=== PATIENT | male | born 1965 | race Caucasian/White ===

== ENCOUNTER 2025-04-04 00:10 | Inpatient (IN) | payer OTHER, SELFPAY ==
[2025-04-03 18:01] VITALS: BP 134/99
[2025-04-03 18:27] LABS: Hematocrit 48.5 % (39.0-52.0); Hemoglobin 17.6 g/dL (13.0-18.0); Mean Corp Hgb Conc. 36.3 g/dL (33.0-37.0); Mean Corpuscular Hgb 31.5 pg (27.0-31.0); Mean Corpuscular Volume 86.8 fL (80.0-94.0); Mean Platelet Volume 8.8 fL (7.4-10.4); Platelet Count 302 10^3/uL (130-400); Red Blood Cell Count 5.59 10^6/uL (4.70-6.10); Red Cell Dist. Width 12.1 % (11.5-14.5); White Blood Cell Count 26.4 10^3/uL (4.8-10.8)
[2025-04-03 18:29] LABS: ALT (SGPT) 45 U/L (0-50); AST (SGOT) 34 U/L (17-59); Albumin 4.2 g/dl (3.5-5.0); Alkaline Phosphatase 94 U/L (38-126); Blood Urea Nitrogen 15 mg/dl (9-20); Carbon Dioxide 26 mmol/L (22-30); Chloride 98 mmol/L (98-107); Glucose 169 mg/dl (70-99); Sodium 134 mmol/L (135-145); Total Bilirubin 3.9 mg/dl (0.2-1.3); Total Protein 7.1 g/dl (6.3-8.2); eGFR > 60.00
[2025-04-03 18:48] LABS: Lipase 84 U/L (23-300)
[2025-04-03 19:05] LABS: % Basophils 0.4 % (0-2); % Eosinophils 0.7 % (0-6); % Immature Granulocytes 0.8 % (0-0.5); % Lymphocytes 9.5 % (20.5-51.1); % Monocytes 6.8 % (1.7-9.3); % Neutrophils 81.8 % (42.2-75.2); Absolute Basophils 0.1 10^3/uL (0-0.2); Absolute Eosinophils 0.2 10^3/uL (0-0.7); Absolute Immature Granulocytes 0.2 10^3/uL (0-0.05); Absolute Lymphocytes 2.5 10^3/uL (1.2-3.4); Absolute Monocytes 1.8 10^3/uL (0.1-0.6); Absolute Neutrophils 21.6 10^3/uL (1.4-6.5); Nucleated Red Blood Cells % 0 % (-)
--- NOTE | 2025-04-03 19:17 | ED.GENMED ---
History of Present Illness
General
Chief Complaint: Abdominal Symptoms
Source: patient
Exam Limitations: none
Time Seen by Provider: 04/03/25 19:02
History of Present Illness
History of Present Illness:
59-year-old male presents complaining of persistent right upper quadrant abdominal pain since 2 days ago with chills and sweats and a measurable fever. He was here 4 years ago and diagnosed with a gallstone. This pain feels very similar. He was
not nauseous but try to make himself vomit to feel better however this did not help. No cough or shortness of breath. No urinary symptoms. He is healthy otherwise. No other
Phy Exam
Physical Exam
Physical Exam:
General: Well-appearing male no acute respiratory distress
HEENT: Normocephalic atraumatic no obvious icterus
Heart: Tachycardic but regular lungs: Clear no wheeze
Abdomen is soft tender to the right upper quadrant positive Diaomnd sign
Extremities: No cyanosis
Skin is warm no jaundice
Sepsis
Sepsis Screening
Sepsis Assessment: Sepsis
Sepsis Screen
Sepsis Screen: Sepsis
Date: 04/03/25
Time: 23:25
Course
Orders/Labs/Results
Orders:
Orders
04/03/25 18:03
US Abdomen Complete/Upper Urgent
Comment:
Reason For Exam: RUQ abd pain w/ fever x 3 days
04/03/25 18:08
Complete Blood Count/With Diff Urgent
Comprehensive Metabolic Panel Urgent
Lipase Urgent
04/03/25 19:14
0.9% Sodium Chloride 1000 ml [Nss] 1,000 ml IV BOLUS
Acetaminophen [Tylenol] 1,000 mg PO NOW STA
Ketorolac [Toradol] 15 mg IV NOW STA
04/03/25 23:17
Piperacillin/Tazo 3.375 Gram [Zosyn] 3.375 gram in 50 ml IV NOW
Abnormal Lab Results
04/03/25
18:08
WBC 26.4 H 10^3/uL
(4.8-10.8)
MCH 31.5 H pg
(27.0-31.0)
Abs Immat Gran (auto) 0.2 H 10^3/uL
(0-0.05)
Absolute Neuts (auto) 21.6 H 10^3/uL
(1.4-6.5)
Absolute Monos (auto) 1.8 H 10^3/uL
(0.1-0.6)
Immature Gran % 0.8 H %
(0-0.5)
Neutrophils % 81.8 H %
(42.2-75.2)
Lymphocytes % 9.5 L %
(20.5-51.1)
Sodium 134 L mmol/L
(135-145)
Glucose 169 H mg/dl
(70-99)
Total Bilirubin 3.9 H mg/dl
(0.2-1.3)
04/03/25 18:08
04/03/25 18:08
Vital Signs
Initial and Last Documented VS:
Initial Vital Signs
Temp Pulse Resp BP Pulse Ox
101.3 F H 126 20 134/99 96
04/03/25 18:01 04/03/25 18:01 04/03/25 18:01 04/03/25 18:01 04/03/25 18:01
Last Documented Vital Signs
Temp Pulse Resp BP Pulse Ox
99.4 F 91 18 133/85 94
04/03/25 21:01 04/03/25 21:01 04/03/25 21:01 04/03/25 21:01 04/03/25 21:01
MDM/Problems Addressed
Differential Diagnosis Includes:
Fever right upper quadrant pain. Consider cholecystitis versus cholangitis. White blood cell count is elevated at 26,000. Heart rate is high. Concern for possible sepsis. Fluids ordered Tylenol ordered Toradol ordered. Ultrasound pending
*Critical Care Note
Total Time (30-74mins, 75-104mins- exclusive of procedures): Not Applicable
Update Note
Update Note:
Ultrasound shows gallstone with borderline gallbladder wall thickening and questionable pericholecystic fluid. Patient meets sepsis criteria with leukocytosis fever and tachycardia. Fluids ordered Zosyn ordered. Discussed findings general surgery
who recommended medical admit for GI consult and evaluation for possible choledocholithiasis. Hospitalist made aware patient made aware
ED Attending Note
-
Portions of this chart may have been created with voice recognition software.� Occasional wrong word or��sound alike� substitutions may have occurred due to the inherent limitations of voice recognition software.
Discharge Plan
Departure
Patient Disposition: Admit
Date of Disposition: 04/03/25
Time of Disposition: 23:24
Presentation/result/management discussed w/ accepting MD/DO: Hospitalist
Patient with high blood pressure during this ER visit?: No
Discharge Problem:
Acute cholecystitis
Prescriptions:
No Action
dextroamphetamine-amphetamine [Adderall] 10 mg Tablet
10 mg PO DAILY
clonazepam [Klonopin] 1 mg Tablet
1 mg PO DAILY PRN (Reason: anxiety )
ibuprofen [Advil] 200 mg Tablet
400 mg PO Q6H PRN (Reason: mild pain/HINES)
Referrals:
Lakesha Juan CRNP [Family Provider] -
Interventions
Interventions:
*Risk Screen - Suicide Last Done: 04/03/25 18:01
*General Assessment Last Done: 04/03/25 18:01
*Neglect/Abuse Screening Last Done: 04/03/25 18:01
*ED- Fall Risk Assessment Last Done: 04/03/25 23:23
*ED COVID-19 Vaccine History Last Done: 04/03/25 23:23
Discharge Date and Time
Print Language: CYMRO
[2025-04-03 19:29] VITALS: BMI 29.4
[2025-04-03] MEDS: TYLENOL 1000 MG PO (19:31)
[2025-04-03] MEDS: TORADOL 15 MG IV (19:35)
[2025-04-03] MEDS: NSS 1000 IV (19:35)
[2025-04-03 21:01] VITALS: BP 133/85
[2025-04-03] MEDS: ZOSYN 50 IV (23:33)
--- NOTE | 2025-04-03 23:45 | HPS.HSE ---
Family Physician
-
Family Physician: DENITA Shaw
Chief Complaint
-
Abdominal pain
History of Present Illness
This is a 59-year-old with past medical history significant for anxiety and a prior history of biliary colic presents to the emergency department with right upper quadrant abdominal pain for the last 3 days.
Patient stated that approximately 4 years ago he had episode of biliary colic. He had stones in the gallbladder at that time and decided not to undergo surgical procedure. He states he has been asymptomatic from that perspective up until 2 or 3
days ago when he started having abdominal pain and bloating. Denies any nausea or vomiting. He denies any diarrhea. He had chills at home but did not measure his temperature. He denies any changes to the color of his stool or urine. He denies
any diarrhea.
In the emergency department he had a temp of 101.3 on arrival, blood pressure was 193/85 with a pulse of 91 was satting 90% on room air.
White count was 26.4, hemoglobin and platelets were normal. Electrolytes were normal. BUN/creatinine were normal. LFTs were normal except for elevation in total bilirubin to 3.9. Lipase was normal.
Ultrasound of the abdomen showed dependent cholelithiasis, gallbladder sludge, borderline gallbladder wall thickening and trace pericholecystic fluid. There was negative sonographic Diamond sign. There was no dilation of the biliary duct.
Medical History
Past Medical History
Past Medical History: Reports Psychiatric (Anxiety)
Past Surgical History: Reports Other (Hernia repair)
Social History
Tobacco: Former Smoker
Alcohol: Occasional
Drug: None
Personal: Single
Employment: Employed
Family History
Family History: Not pertinent
Allergies / Home Medications
Allergies reflects when Allergies were last updated in [facility].
Home Medications with original date entered in [facility]
Allergy/Medication List:
Allergies
Allergy/AdvReac Type Severity Reaction Status Date / Time
grasses Allergy sneezing,runny Uncoded 04/03/25 23:24
nose
seasonal allergies Allergy sneezing,runny Uncoded 04/03/25 23:24
nose
Home Medications
clonazepam 1 mg tablet (Klonopin) 1 mg PO DAILY PRN anxiety 04/03/25
dextroamphetamine-amphetamine 10 mg tablet (Adderall) 10 mg PO DAILY 04/03/25
ibuprofen 200 mg tablet (Advil) 400 mg PO Q6H PRN mild pain/HINES 04/03/25
Review of Systems
-
History Source: Patient
Constitutional: Reports No Symptoms
EENT: Reports No Symptoms
Respiratory: Reports No Symptoms
Cardiac: Reports No Symptoms
Abdomen/GI: Reports Abdominal Pain
: Reports No Symptoms
Musculoskeletal: Reports No Symptoms
Skin: Reports No Symptoms
Neurological: Reports No Symptoms
Endocrine: Reports No Symptoms
Hematologic/Lymphatic: Reports No Symptoms
Psych: Reports No Symptoms
Physical Exam
Vital Signs
Vital Signs
Temp Pulse Resp BP Pulse Ox
99.4 F 91 18 133/85 94
04/03/25 21:01 04/03/25 21:01 04/03/25 21:01 04/03/25 21:01 04/03/25 21:01
Physical Exam
General: Well Developed, Well Nourished, Comfortable and Conversant
HEENT: NormoCephalic, Anicteric, Moist mucous membranes and Atraumatic
Respiratory: Clear
Cardiac: S1/S2 and Regular Rhythm
Breast: Deferred by me
GI: Soft, Non Distended, Normal Bowel Sounds and Tender
Rectal: Deferred by Provider
Genito-urinary: Deferred by me
Musculoskeletal: No Clubbing, No Cyanosis and No Edema
Skin: Warm
Neuro: AO x 3 and Nonfocal/grossly intact
Hematologic/Lymphatic: No Lymphadenopathy
Psych: Calm
Laboratory Results
-
04/03/25 18:08
04/03/25 18:08
Laboratory Results
Total Bilirubin 3.9 mg/dl (0.2-1.3) H 04/03/25 18:08
AST 34 U/L (17-59) 04/03/25 18:08
ALT 45 U/L (0-50) 04/03/25 18:08
Alkaline Phosphatase 94 U/L (38-126) 04/03/25 18:08
Lipase 84 U/L (23-300) 04/03/25 18:08
Data Reviewed
-
Ultrasound: Report Reviewed by me
Lab Data: Labs Reviewed by me
Old Records: Reviewed
Impression/Plan
-
IMPRESSION:
59-year-old with history of biliary colic presents to the emergency department with 3 days of abdominal pain, now has a fever right upper quadrant tenderness to palpation and a leukocytosis. Ultrasound is suggestive of cholecystitis but only
marginally so. There is no biliary ductal dilation. No choledocholithiasis noted. Lipase was normal LFTs were normal. Total bilirubin is however elevated at 3.4.
PLAN:
1. RUQ pain- Acute cholecystitis suspected
- admit to med/surg
- npo
- IV zosyn continued
- IV fluids and pain control
- unlikely cholangitis, will trend bilis and lfts,
- mrcp
- GI consultation
- Surgery consultation
DVT PPX - heparin sq
Code status - full code
[2025-04-04] MEDS: LR 1000 IV ×3 (01:15→21:32)
--- NOTE | 2025-04-04 01:15 | PTCARENOTE ---
Pt 59-year-old M arrived at 01:07 from ED. PMH anxiety and a prior history of biliary colic presents to the ED with RUQ for the last 3 days & bloating.
Ultrasound of the abdomen showed dependent cholelithiasis, gallbladder sludge, borderline gallbladder wall thickening and trace pericholecystic fluid. Pt AOx3, pt denies need for pain mgmt at this time, bed in a low position, call light in reach,
care ongoing.
[2025-04-04 01:21] VITALS: BP 144/88
[2025-04-04 01:22] VITALS: BMI 28.9
[2025-04-04] MEDS: HEPARIN 5000 UNITS SC ×4 (01:32→23:14)
[2025-04-04] MEDS: ZOSYN 50 IV ×4 (05:58→23:17)
[2025-04-04 06:00] VITALS: BMI 28.9
[2025-04-04] MEDS: TORADOL 15 MG IV ×2 (06:05→21:30)
[2025-04-04 06:06] LABS: Hematocrit 41.6 % (39.0-52.0); Hemoglobin 14.7 g/dL (13.0-18.0); Mean Corp Hgb Conc. 35.3 g/dL (33.0-37.0); Mean Corpuscular Hgb 31.3 pg (27.0-31.0); Mean Corpuscular Volume 88.5 fL (80.0-94.0); Mean Platelet Volume 9.2 fL (7.4-10.4); Platelet Count 262 10^3/uL (130-400); Red Cell Dist. Width 11.9 % (11.5-14.5); White Blood Cell Count 20.6 10^3/uL (4.8-10.8)
[2025-04-04 06:32] LABS: ALT (SGPT) 42 U/L (0-50); AST (SGOT) 34 U/L (17-59); Albumin 3.3 g/dl (3.5-5.0); Alkaline Phosphatase 89 U/L (38-126); Blood Urea Nitrogen 18 mg/dl (9-20); Calcium 8.6 mg/dl (8.4-10.2); Carbon Dioxide 30 mmol/L (22-30); Chloride 98 mmol/L (98-107); Direct Bilirubin 0.4 mg/dl (0.0-0.4); Estimated Creatinine Clearance 84 ml/min; Glucose 133 mg/dl (70-99); Potassium 4.2 mmol/L (3.5-5.1); Sodium 137 mmol/L (135-145); Total Bilirubin 3.6 mg/dl (0.2-1.3); eGFR > 60.00
[2025-04-04 07:10] VITALS: BP 113/78
[2025-04-04] MEDS: ADDERALL 10 MG PO (08:36)
--- NOTE | 2025-04-04 08:38 | CON.GI ---
Consultation
-
Date/Time Consultation Performed: 04/04/25
Performing Provider: Gage Paiz MD
Reason for Consultation: abdominal pain
Medical History
Chief Complaint / HPI
Chief Complaint: Right upper quadrant pain
History of Present Illness:
The patient is a 59-year-old male with past medical history as noted abdominal pain. Starting he noted right upper quadrant pain, with radiation to the back, after high fat meal the night before. This waxed and waned but became worse
history of traumatic treatment, the emergency room he was found to have significant leukocytosis, and ultrasound showed gallstones with pericholecystic fluid. He has had some pain similar to this years ago consistent with biliary colic. Otherwise
he is doing very well with no chronic GI symptoms and denies any change in bowel habits, melena hematochezia. He denies any chest pain or shortness of breath and is overall doing well medically.
Past Medical History
Past Medical History: Other (anxiety, gallstones)
Past Surgical History: Other (hernia repair)
Social History
Tobacco: Former Smoker
Alcohol: Occasional
Family History
Family History: Reviewed & Not Pertinent
Allergies / Home Medications
Allergy/AdvReac Type Severity Reaction Status Date / Time
grasses Allergy sneezing,runny Uncoded 04/03/25 23:24
nose
seasonal allergies Allergy sneezing,runny Uncoded 04/03/25 23:24
nose
�Medication �Instructions �Recorded
clonazepam 1 mg tablet (Klonopin) 1 mg PO DAILY PRN anxiety 04/03/25
dextroamphetamine-amphetamine 10 10 mg PO DAILY 04/03/25
mg tablet (Adderall)
ibuprofen 200 mg tablet (Advil) 400 mg PO Q6H PRN mild pain/HINES 04/03/25
Review of Systems
-
All other systems: A 12 pt ROS was Negative except as stated above in HPI
Vital Signs
Temp Pulse Resp BP Pulse Ox
99.5 F 88 16 113/78 96
04/04/25 07:10 04/04/25 07:10 04/04/25 07:10 04/04/25 07:10 04/04/25 07:10
Physical Exam
Exam
General: NAD
HEENT: MMM, anicteric, no lymphadenopathy
Heart: Regular, no murmurs
Lungs: CTA bilaterally
Abdomen: normal bowel sounds, soft, mild right upper quadrant tenderness, no rebound or guarding, no masses, bruits or ascites
Extremeties: no edema
Skin: no rashes
Results
WBC 20.6 10^3/uL (4.8-10.8) H 04/04/25 04:44
Hgb 14.7 g/dL (13.0-18.0) 04/04/25 04:44
Hct 41.6 % (39.0-52.0) 04/04/25 04:44
MCV 88.5 fL (80.0-94.0) 04/04/25 04:44
Plt Count 262 10^3/uL (130-400) 04/04/25 04:44
Absolute Neuts (auto) 21.6 10^3/uL (1.4-6.5) H 04/03/25 18:08
Sodium 137 mmol/L (135-145) 04/04/25 04:44
Potassium 4.2 mmol/L (3.5-5.1) 04/04/25 04:44
Chloride 98 mmol/L (98-107) 04/04/25 04:44
Carbon Dioxide 30 mmol/L (22-30) 04/04/25 04:44
BUN 18 mg/dl (9-20) 04/04/25 04:44
Creatinine 1.0 mg/dL (0.7-1.3) 04/04/25 04:44
Calcium 8.6 mg/dl (8.4-10.2) 04/04/25 04:44
Total Bilirubin 3.6 mg/dl (0.2-1.3) H 04/04/25 04:44
AST 34 U/L (17-59) 04/04/25 04:44
ALT 42 U/L (0-50) 04/04/25 04:44
Alkaline Phosphatase 89 U/L (38-126) 04/04/25 04:44
Lipase 84 U/L (23-300) 04/03/25 18:08
Diagnostic Image Results:
US:
IMPRESSION:
Small gallstones are identified. Gallbladder wall thickness is top normal there appears to be a thin rim of pericholecystic edema. Comet-tail artifact arising from the anterior wall of the gallbladder, usually seen in association with
adenomyomatosis. Please correlate with clinical signs and symptoms that would suggest cholecystitis.
No evidence for biliary ductal dilation.
Top-normal liver length, with no focal hepatic lesion.
The upper abdominal aorta and the upper abdominal IVC are unable to be adequately visualized.
Probable 2 mm nephrolith in the lower pole the right kidney, with no evidence for pelvicalyceal dilation.
Prior GI Procedures:
EGD:
Colonoscopy:
Assessment / Plan
-
1. Right upper quadrant pain: Consistent with cholecystitis given tenderness on exam leukocytosis. Ultrasound did not have any duct dilation and LFTs were normal making CBD stone very unlikely. He did have MRCP which I reviewed which looks okay
by my review of the will wait on official reading. If MRCP is negative then would continue care per surgery, continue antibiotics and supportive care and we will sign off.
-
-
Thank you for consultation and allowing me to participate in the patient's care. Please call the staffing consultant GI physician during the after hours with any questions or concerns.
--- NOTE | 2025-04-04 09:33 | CON.GS ---
Consultation
-
Date/Time Consultation Performed: 04/04/25 08
Medical History
-
Chief Complaint: RUQ pain
History of Present Illness:
Mr Boone is a 59 yo male with a h/o UHR approx 40 years ago who presented through the ED with RUQ pain since morning. He notes that on Saturday night, he had a large meal of hamburgers with ice cream for desert and was awakened from sleep
early the following morning with RUQ pain radiating into his back. Pain was better the following day but returned on Saturday and was much worse accompanied by chills and sweats. At the urging of his sister, he presented to the ED later that day for
evaluation. Fever noted on presentation of 101.3. He denies n/v but has not had much of an appetite. His last BM was on Saturday. He denies acholic stools. He denies changes to urine. He notes that since receiving analgesics in the ED, pain has
lessened to a 1/10.
Past Medical History
Past Medical History: Psychiatric (add, anxiety)
Past Surgical History: Hernia Repair (Primary UHR ) and Other (stapedectomy right ear)
Social History
Tobacco: Former Smoker
Alcohol: Occasional
Personal: Single
Employment: Employed
Family History
Family History: Reviewed & Not Pertinent
Allergies / Home Medications
Allergy/AdvReac Type Severity Reaction Status Date / Time
grasses Allergy sneezing,runny Uncoded 04/03/25 23:24
nose
seasonal allergies Allergy sneezing,runny Uncoded 04/03/25 23:24
nose
�Medication �Instructions �Recorded �Confirmed �Type
clonazepam 1 mg tablet (Klonopin) 1 mg PO DAILY PRN anxiety 04/03/25 04/03/25 History
dextroamphetamine-amphetamine 10 10 mg PO DAILY 04/03/25 04/03/25 History
mg tablet (Adderall)
ibuprofen 200 mg tablet (Advil) 400 mg PO Q6H PRN mild pain/HINES 04/03/25 04/03/25 History
Review of Systems
-
History Source: Patient
All other systems: Negative unless noted
A 10 point review of systems was completed, and was negative except as per HPI.
Physical Exam
Vital Signs
Temp Pulse Resp BP Pulse Ox
99.5 F 88 16 113/78 96
04/04/25 07:10 04/04/25 07:10 04/04/25 07:10 04/04/25 07:10 04/04/25 07:10
04/03/25 04/04/25 04/05/25
06:59 06:59 06:59
Actual Weight 94.007 kg
Body Mass Index (BMI) 28.9
Lab Results
04/04/25 04:44
04/04/25 04:44
WBC 20.6 10^3/uL (4.8-10.8) H 04/04/25 04:44
Hgb 14.7 g/dL (13.0-18.0) 04/04/25 04:44
Hct 41.6 % (39.0-52.0) 04/04/25 04:44
Plt Count 262 10^3/uL (130-400) 04/04/25 04:44
Abs Immat Gran (auto) 0.2 10^3/uL (0-0.05) H 04/03/25 18:08
Neutrophils % 81.8 % (42.2-75.2) H 04/03/25 18:08
Physical Exam
General: Well Developed and Well Nourished
HEENT: Moist Mucous Membranes
Respiratory: Non Labored Respirations
GI: Soft, Non Distended and Tender (RUQ)
Skin: Warm and Dry
Neuro: Awake, Alert and AO x 3
Psych: Calm
Data Reviewed
-
Ultrasound: Image Personally Visualized and interpreted, Report Reviewed by me, Discussed with Physician, Discussed with Nurse and Discussed with Patient
MRI: Image Personally Visualized and interpreted, Discussed with Physician and Discussed with Patient
Labs: Labs Reviewed by me, Discussed with Physician and Discussed with Patient
Old Records: Reviewed
Assessment / Plan
-
59 yo male with a h/o UHR presenting with 4 days of RUQ pain with fever on presentation. US consistent with acute calculous cholecystitis. Bilirubin elevated to 3.6 with normal direct. Leukocytosis with WBC of 10.6. MRCP done in follow up not
formally read, but upon my review there is no choledocholithiasis present. Gallbladder wall thickening and pericholecystic stranding noted. VSS with tmax of 101.3. RUQ tenderness on exam.
--Gastroenterology following with us, await final MRCP read
--Recommend laparoscopic cholecystectomy, timing TBD pending OR availability
--NPO at this time
--C/W IV Zosyn
--C/W IVF
--Follow fever trend, prn antipyretics
--Analgesics prn
--- NOTE | 2025-04-04 10:06 | CM ---
Reviewed the chart notes and spoke with the patient at the bedside. The patient resides alone in a two story home with no steps to enter. The patient reports no DME/VN/SNF in the past. Patient confirmed pharmacy of choice is [facility]
[facility]. The patient reports no insurance. CM left message with [facility] to follow-up with the patient. Patient anticipates going to the OR later today or tomorrow for a lap chadd. CM continues to be available to patient/family and is monitoring
medical plan for needs at discharge.
Plan: Discharge to home when medically stable.
--- NOTE | 2025-04-04 12:34 | W.PN.HOSP.TC ---
Today's Communication/Plan
-
Continue IV Zosyn
Clear liquid diet
Trend LFT
Plan for cholecystectomy
Assessment / Plan
Assessment / Plan
#Acute cholecystitis
#H/O biliary colic
-Presented with abdominal pain over last 3 days, most notably RUQ
-Similar occurrence roughly 4 years ago, was recommended cholecystectomy though deferred
-Has remained hemodynamically stable; was started on IV Zosyn upon arrival
-LFTs with elevated T. bili though otherwise normal, low suspicion for choledocholithiasis
-MRCP without signs of choledocholithiasis on prelim read, final read pending
-States pain is well-controlled with analgesics, has not had significant nausea or vomiting
Plan
-Continue IV Zosyn and trend CBC and LFT
-Follow-up MRCP final read
-IVF, analgesics, antiemetic
-Continue with CLD for now
-Plan for cholecystectomy
#Anxiety
#ADHD
-Home regimen includes clonazepam as needed for anxiety, Adderall for ADHD
#H/O hernia repair
-Denies any previous issues with anesthesia or family history of poor reactions anesthesia
Diet: CLD
DVT prophylaxis: SQ heparin
CODE STATUS: Full code
Anticipated Discharge: 24 - 48 hours
Subjective/Interval History
-
Date of Service: April 04, 2025
Seen and examined at bedside. No acute events reported overnight. AFVSS this morning
WBC downtrending, chemistries stable with downtrending T. bili
Patient states analgesia providing adequate coverage, denies nausea. Denies new complaint
Objective Data
-
Labs:
Laboratory Results
04/04/25
04:44
WBC 20.6 H
Hgb 14.7
Hct 41.6
Plt Count 262
Sodium 137
Potassium 4.2
Chloride 98
Carbon Dioxide 30
BUN 18
Creatinine 1.0
Glucose 133 H
Calcium 8.6
Total Bilirubin 3.6 H
AST 34
ALT 42
Alkaline Phosphatase 89
Vital Signs:
Vital Signs
Temp Pulse Resp BP Pulse Ox
99.5 F 88 16 113/78 96
04/04/25 07:10 04/04/25 07:10 04/04/25 07:10 04/04/25 07:10 04/04/25 07:10
I&O
04/03/25 04/04/25 04/05/25
06:59 06:59 06:59
Intake Total 625 / 625
Balance 625 / 625
Review of Systems
-
History Source: Patient
All other systems: Reviewed and negative
Physical Exam
-
General: Well Developed, Well Nourished, No Apparent Distress and Comfortable
HEENT: Normocephalic, Atraumatic, Moist Mucous Membranes and Anicteric
Respiratory: Clear to Auscultation and Non Labored Respirations; Negative Accessory Resp Muscle Use
Cardiac: Regular Rhythm and S1/S2; Negative Murmur, Rub or Gallop
GI: Soft, Nondistended, Normal Bowel Sounds and Tender (Mild RUQ, negative Diamond's)
Musculoskeletal: No Clubbing, No Cyanosis and No Edema
Skin: Warm, Dry and Normal Turgor; Negative Rash or Jaundice
Neuro: AO x 3 and Nonfocal/Grossly Intact
Psych: Calm
Data Reviewed
-
Labs: Labs Reviewed by me and Discussed with Patient
[2025-04-04 15:05] VITALS: BP 125/89
[2025-04-04] MEDS: KLONOPIN 1 MG PO (20:50)
[2025-04-04 22:35] VITALS: BP 108/70
[2025-04-05] VITALS (9 sets, daily range): BP systolic 117–158; BP diastolic 84–102
[2025-04-05] MEDS: ZOSYN 50 IV (05:14)
[2025-04-05 06:26] LABS: % Basophils 0.6 % (0-2); % Eosinophils 6.6 % (0-6); % Immature Granulocytes 0.7 % (0-0.5); % Lymphocytes 21.7 % (20.5-51.1); % Neutrophils 60.4 % (42.2-75.2); Absolute Basophils 0.1 10^3/uL (0-0.2); Absolute Eosinophils 0.8 10^3/uL (0-0.7); Absolute Immature Granulocytes 0.1 10^3/uL (0-0.05); Absolute Lymphocytes 2.7 10^3/uL (1.2-3.4); Absolute Monocytes 1.3 10^3/uL (0.1-0.6); Absolute Neutrophils 7.6 10^3/uL (1.4-6.5); Hematocrit 39.3 % (39.0-52.0); Mean Corp Hgb Conc. 35.6 g/dL (33.0-37.0); Mean Corpuscular Hgb 31.5 pg (27.0-31.0); Mean Corpuscular Volume 88.5 fL (80.0-94.0); Mean Platelet Volume 8.8 fL (7.4-10.4); Nucleated Red Blood Cells % 0 % (-); Platelet Count 295 10^3/uL (130-400); Red Blood Cell Count 4.44 10^6/uL (4.70-6.10); Red Cell Dist. Width 11.9 % (11.5-14.5); White Blood Cell Count 12.6 10^3/uL (4.8-10.8)
[2025-04-05 06:50] LABS: ALT (SGPT) 56 U/L (0-50); AST (SGOT) 40 U/L (17-59); Albumin 3.1 g/dl (3.5-5.0); Alkaline Phosphatase 98 U/L (38-126); Blood Urea Nitrogen 15 mg/dl (9-20); Calcium 8.6 mg/dl (8.4-10.2); Carbon Dioxide 33 mmol/L (22-30); Chloride 100 mmol/L (98-107); Direct Bilirubin 0.3 mg/dl (0.0-0.4); Estimated Creatinine Clearance 76 ml/min; Glucose 136 mg/dl (70-99); Potassium 3.9 mmol/L (3.5-5.1); Sodium 139 mmol/L (135-145); Total Bilirubin 1.8 mg/dl (0.2-1.3); Total Protein 5.6 g/dl (6.3-8.2); eGFR > 60.00
[2025-04-05] MEDS: LR 1000 IV (08:02)
[2025-04-05] MEDS: HEPARIN 5000 UNITS SC (08:04)
[2025-04-05] MEDS: ADDERALL 10 MG PO (08:04)
--- NOTE | 2025-04-05 10:17 | W.PN.GS2 ---
Addendum entered and electronically signed by Hussain Abreu MD 04/05/25 12:54:
I saw and examined the patient independently.
The resident's documentation was reviewed and I agree with the note, assessment and plan except where noted below.
Comment: 59-year-old male presents with a 2-day history of right upper quadrant postprandial abdominal pain. Positive moderate sonographic Diamond sign and cholecystitis on imaging. Acute cholecystitis.
Will plan for laparoscopic cholecystectomy and cholangiogram in the OR today.
N.p.o., IV fluids, IV antibiotics.
Risks/Benefits/Alternatives, expected postoperative course and possible complications (bleeding, infection, injury to surrounding structures, acute/chronic pain) discussed at length. Patient wishes to proceed with surgery. All questions answered.
Consent obtained.
I spent 60 minutes in total for the care of this patient today including direct patient care and counseling, reviewing labs, imaging, coordination of care, as well as documentation.
Original Note:
Today's Communication / Plan
-
- Patient is anticipated to have laparoscopic cholecystectomy performed, keep NPO, monitor vitals
Assessment / Plan
-
Acute cholecystitis with a previous history of biliary colic:
- Confirmed on both imaging and physical examination
- Physical examination shows right upper quadrant tenderness with positive Diamond sign
- Patient is hemodynamically stable, no nausea, no vomiting
- Continue IV Zosyn
- Continue intravenous fluids as needed
- Continue Tylenol, Toradol, Dilaudid as needed, pain is well-controlled
- Continue Zofran as needed for nausea/vomiting as needed
- Continue to monitor CBC to trend WBC count
- Keep patient n.p.o.
-Continue patient on subcutaneous heparin
- Patient will have laparoscopic cholecystectomy scheduled/performed
Leukocytosis:
- Today WBC count is 12.6 which is trending down from admission 26.4
- Most likely reactive due to inflammation of gallbladder
-Continue to trend WBC
Elevated total bilirubin:
- Bilirubin is 1.8 today trending down from 3.9 on admission
-MRCP is negative for choledocholithiasis and biliary dilatation
- Continue to trend bilirubin
Anxiety
ADHD:
- Continue Adderall
-Continue clonazepam as needed
DVT prophylaxis subcutaneous heparin
Full code
Subjective Data
-
Date of Service: April 05, 2025
59-year-old male with a past medical history of anxiety and biliary colic with intermittent severe right upper quadrant abdominal pain that started on 03/31/2025. The pain then initially improved over the course of the next 2 days, however it
returned on 04/03/25 and was even worse than initial presentation, patient states 'he felt like he was going to ', and he presented to the emergency room on 04/03/2025 at 5:46 PM. He previously had an episode of biliary colic years ago was
recommended cholecystectomy at that time however he had declined. On admission he denies any nausea vomiting, change in urinary symptoms, shortness of breath. Patient had previous hernia repair done 20 years ago.
On admission his initial labs are WBC is 26.4, total bilirubin is 3.9, LFTs are 34/42
Abdominal ultrasound shows multiple stones, gallbladder wall thickening to 3 mm, trace pericholecystic fluid that correlate with a suggested diagnosis of cholecystitis
Gastroenterology was consulted and performed an MRCP to check for choledocholithiasis (due to elevated total bilirubin) and biliary dilatation which was negative
Objective Data
-
Intake and Output
04/04/25 04/05/25 04/06/25
06:59 06:59 06:59
Intake Total 625 / 625 3880 / 3880
Balance 625 / 625 3880 / 3880
Intake:
Oral fluids 1380 / 1380
IV fluids (Total) 575 / 575 2400 / 2400
IV piggybacks 50 / 50 100 / 100
Other:
Number of approximated MODERATE 3
amounts of urine
Vital Signs
Temp Pulse Resp BP Pulse Ox
98.5 F 76 16 117/84 98
04/05/25 07:02 04/05/25 07:02 04/05/25 07:02 04/05/25 07:02 04/05/25 07:02
Lab Results
04/05/25 05:40
04/05/25 05:40
Calcium 8.6 mg/dl (8.4-10.2) 04/05/25 05:40
Total Bilirubin 1.8 mg/dl (0.2-1.3) H D 04/05/25 05:40
Direct Bilirubin 0.3 mg/dl (0.0-0.4) 04/05/25 05:40
AST 40 U/L (17-59) 04/05/25 05:40
ALT 56 U/L (0-50) H 04/05/25 05:40
Alkaline Phosphatase 98 U/L (38-126) 04/05/25 05:40
Total Protein 5.6 g/dl (6.3-8.2) L 04/05/25 05:40
Albumin 3.1 g/dl (3.5-5.0) L 04/05/25 05:40
Physical Exam
-
Abdominal examination-abdomen is soft, abdomen is nondistended, bowel sounds are present, there is right upper quadrant tenderness, Diamond sign positive
--- NOTE | 2025-04-05 10:21 | W.SUR.PREOP ---
Pre-Operative Surgical Note
-
I have examined this patient prior to the performance of the scheduled procedure.
The patient's condition is unchanged from the time of the current History and
Physical and the patient is able to undergo the scheduled procedure.
[2025-04-05] MEDS: ZOSYN IV (11:12)
--- NOTE | 2025-04-05 12:54 | W.IMMPOSTOP ---
Surgical Immed Post Op Note
-
Primary Surgeon: Hussain Abreu MD
Assisting Surgeon: Maryanne Estrella
Pre-op Diagnosis: Acute cholecystitis
Post-op Diagnosis: Gangrenous cholecystitis
Procedure Performed: Laparoscopic cholecystectomy with cholangiogram
Anesthesia Type: General
Specimen / Cultures: Gallbladder and contents
Estimated Blood Loss: 23 cc
Complications: None
Operative Findings: Gangrenous cholecystitis. Critical view of safety obtained prior to a cholangiogram which demonstrated no distal filling defects and other than a slightly dilated common duct normal biliary anatomy. Duct ligated with a clip
followed by 0 PDS Endoloop. Some spillage of murky bile but no stones. Epigastric port site enlarged requiring 2 lzkhaz-wz-[id number] 0 PDS sutures.
POST OP PLAN:
Imaging: None
Labs: Routine AM
Diet: Advance to Regular as tolerated
Analgesia: Tylenol 650mg q6 Lana, Shakila 5mg q6 PRN, Dilaudid 0.5mg q2h PRN
Neuro/vascular checks: q4h
AC/AP: Hold Therapeutic AC, Ok for DVT PPx
Activity: Ad Marii
Wound/Incisions/Drains: Routine
Abx: Will do 4 days of postoperative antibiotics
Dispo: RNF, anticipate discharge home today versus most likely tomorrow.
--- NOTE | 2025-04-05 12:59 | OR.RPT ---
Addendum entered and electronically signed by Hussain Abreu MD 04/05/25 17:16:
Addendum to add under procedure description after hemostasis obtained. 'The gallbladder fossa/surgical bed was infiltrated with Surgiflo to ensure hemostasis, due to the raw inflamed nature of the tissues.'
Original Note:
Operative Report
Operative Report
Patient Name: Toby Boone
: 1965
Date of Operation: 04/05/2025
Preoperative Diagnosis: Acute cholecystitis
Postoperative Diagnosis: Gangrenous cholecystitis
Procedure(s):
Laparoscopic Cholecystectomy with Cholangiogram
Surgeon(s):
Dr. Abreu
Informatics Scientist(s):
Maryanne Estrella MD ([id number])
ROBERT Gale
Anesthesia: General
Estimated Blood Loss: 23 cc
Urine Output: None
Drains/Lines/Implants: None
Specimens:
1. Gallbladder and contents
HPI/Surgical Indications:
This is a 59-year-old male who presents with 2 days of right upper quadrant abdominal pain, in the setting of similar. Exam, labs and imaging are consistent with acute cholecystitis. Risks/Benefits/Alternatives were discussed at length, and the
patient agreed to proceed with surgery.
Operative Findings: Gangrenous cholecystitis. Critical view of safety obtained prior to a cholangiogram which demonstrated no distal filling defects and other than a slightly dilated common duct normal biliary anatomy. Duct ligated with a clip
followed by 0 PDS Endoloop. Some spillage of murky bile but no stones. Epigastric port site enlarged requiring 2 lcgrae-oh-kinot 0 PDS sutures.
Procedure Description:
The patient was brought to the Operating Room and placed in the supine position with one arm tucked. Following uneventful induction of general endotracheal anesthesia, an orogastric tube was placed. The abdomen was prepped and draped in the usual
sterile fashion. A timeout was performed confirming the procedure, consent, and that IV antibiotics were infused and sequential compression devices were confirmed to be on. The abdomen was entered using a left subcostal Veress technique which
required a single pass followed by a 5 mm right upper quadrant Optiview trocar. Pneumoperitoneum to 15 mmHg pressure was obtained without difficulty and we confirmed that no injury had occurred during our entry. The patient was positioned in
reverse Trendelenberg and rotated with the right side up slightly. Two 5 mm trocars were then placed along the right subcostal margin, followed by a 12 mm port in the epigastrium. The gallbladder was emptied using a decompressing needle through
the fundus of the gallbladder with evacuation of hydrops before A locking grasping forceps was placed on the fundus of the gallbladder where it was then retracted cephalad and to the right. Using appropriate grasping instruments, the peritoneum
overlying the triangle of Calot was incised and extended superiorly on both the anterior and posterior gallbladder esquivel. The infundibulum was dissected off the cystic plate. The cystic triangle was dissected until a critical view of safety was
achieved. The cystic artery was medialized, dissected and controlled with 2 proximal clips and 1 distal. The cystic duct/gallbladder junction in turn was identified, dissected circumferentially and a clip was placed. A ductotomy was made and a
cholangiocatheter on an Salazar clamp was inserted into the cystic duct. A C-arm was draped and brought into the field. An intra-operative cholangiogram was performed and was noted to have:
No filling defects in the biliary tree
No significant biliary dilation
Brisk flow of contrast into the duodenum
Normal biliary anatomy
The catheter was then removed and the cystic duct was controlled with a clip followed by a 0 PDS Endoloop. After ensuring both the artery and duct were divided, the gallbladder was freed from the liver using electrocautery. There was some spillage
of bile, but no spillage of stones. The gallbladder bed was inspected and excellent hemostasis was obtained. The gallbladder was extracted through the 12 mm trocar site using an endocatch bag. The abdomen was again irrigated and excellent
hemostasis was assured. All remaining trocars were then removed and the pneumoperitoneum was evacuated. The 12 mm trocar site was closed using 0 PDS suture. All trocar sites were closed at the skin level using 4-0 Monocryl followed by Dermabond.
Overall, the patient tolerated the procedure well and was taken to the Recovery Room postoperatively in stable condition.
I was the attending physician and performed the procedure with assistance from the resident and STUDIO MODEL above. Dr. Estrella assisted with providing tension and counter tension, help provide exposure and closing ports. Kaity assisted with initial port
placement and driving camera. I was present for all portions of the case, excluding skin closure.
Hussain Abreu MD
[2025-04-05] MEDS: DILAUDID 0.5 MG IV (13:43)
--- NOTE | 2025-04-05 14:08 | PTCARENOTE ---
Patient returned to his room from PACU post laparoscopic colycystectomy with cholangiogram.He reports his pain at a 5 out of 10.All 5 lap sites are intact without any drainage.Vital signs are stable.The patient is alert and oriented and was going to
order something to eat.His call lee is in reach and he is in his bed.
--- NOTE | 2025-04-05 14:51 | W.PN.UPDATE ---
Update Note
Progress Note Update
Patient was transferred to Surgical service, this morning, prior to my evaluation.
--- NOTE | 2025-04-05 15:21 | CM ---
CM following re: discharge planning.
Reviewed pt's chart, met with pt.
Pt is s/p Laparoscopic Cholecystectomy with Cholangiogram today 04/05/25, continue supportive care.
CM met with the pt prior to surgery. [facility]. CM provided pt with information regarding [employer] insurance, [employer] insurance. Pt reports he mostly works [place] for [employer]. For the past 3
months he worked in [employer].
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
D/C plan; home no needs. Pt will follow up with [employer] insurance for enrollment process.
CM will follow with discharge plan updates as hospitalization progresses
--- NOTE | 2025-04-05 15:59 | W.DCSUMMARY ---
Discharge Summary
Discharge Data
Date of Admission: 04/04/25
Date of Discharge: 04/05/25
-
Pending Results: No
Hospital Course
Mr Boone presented through the ED with several days of RUQ and new onset of fevers. He was found to have cholecystitis on US with MRCP confirming cholecystitis without choledocholithiasis noted. He was taken to the OR for laparoscopic
cholecystectomy with gangrenous cholecystitis noted intraoperatively. Intraoperative cholangiogram showed no stones in the common bile duct. He tolerated the procedure well and was able to tolerate diet with minimal pain post operatively. He was
discharged to home on a 4 day course of oral antibiotics with outpatient follow up planned in the coming weeks.
Discharge Plan
-
Patient Disposition: Home (Routine Discharge)
Discharge Diagnosis/Procedures: Gangrenous cholecystitis status post laparoscopic cholecystectomy
Condition: Good
Diet: No restrictions
Activity: No strenuous activity
Driving Restrictions: As prior to admission
Bathing Restrictions: OK to Shower
Activity Restrictions/Additional Instructions:
Instructions following Laparoscopic Cholecystectomy
Please call [phone] if you have any questions or concerns after your surgery.
Wound Care:
Your incisions are covered with skin glue which will come off on its own in 5-10 days.
It is ok to shower the day after your surgery. Do not scrub the incisions, let soap and water wash over them and pat dry.
� Bruising around your incisions is normal.
� Using ice packs will help minimize this swelling.
� No swimming or soaking incisions for 1 week.
� Your stitches will dissolve and do not need to be removed.
Urinary retention:
If you are unable to urinate 6-8 hours after your surgery, please call [phone] to discuss further management.
Activity:
No heavy lifting more than 15 pounds for the next 3 weeks, then you may gradually lift heavier objects as tolerated by discomfort. Otherwise activity as tolerated by your comfort level.
Pain Management:
Use Tylenol, ibuprofen and ice packs to treat your pain.
� You may take 650 milligrams of Tylenol (Max 3 grams per day) every 6 hours, and 600 mg of ibuprofen also every 6 hours. (you can alternate them every 3 hours)
� You may use an ice pack to your incision as needed.
� If you still have pain not controlled by these measures, take your prescription pain medication as prescribed.
Medications:
You may resume your home medications.
Bowel Medications:
Prescription pain medication can make you constipated. If you take this medication, also take colace 100 mg twice daily (this is over the counter). If this is not sufficient, you may take Miralax (polyethylene glycol) to help move your bowels.
Diet:
After your procedure, there are no dietary restrictions. However, you may notice some loose stools with fatty meals for up to 4 weeks after surgery. If this is the case, please adjust to a low fat diet as needed.
Driving restrictions:
No driving if you are taking prescription pain medication or if you think your normal reaction time and attentiveness has been slowed by your surgery.
Things to Look out for:
Worsening Abdominal pain, fever, jaundice, redness or drainage from incision
Call Doctor for:
Please call if you notice worsening redness or drainage from incision(s) lasting longer than 5 days after your surgery, any foul-smelling drainage from the incision, pain not controlled by pain medications, persistent nausea and vomiting, or for any
fevers greater than 101.3 F. The number for questions/concerns is [phone]
Follow-up:
A follow-up appointment will be scheduled with your surgeon in 3-4 weeks. Please call prior to your appointment if you have any questions or concerns. [phone]
Referrals:
Lakesha Juan CRNP [Family Provider] -
Hussain Abreu MD [Active] -
Dhruv Ohara MD [Active] - in four to six weeks (To discuss colonoscopy)
Prescriptions:
New
acetaminophen [acetaminophen] 325 mg tablet
650 mg PO Q6HPRN PRN (Reason: mild pain) Qty: 14 0RF
amoxicillin-pot clavulanate [Augmentin] 500-125 mg tablet
1 tab PO Q12H Qty: 8 0RF
tramadol 50 mg tablet
50 mg PO Q6HPRN PRN (Reason: severe pain/breakthrough pain) Qty: 8 0RF
Continued
dextroamphetamine-amphetamine [Adderall] 10 mg Tablet
10 mg PO DAILY
clonazepam [Klonopin] 1 mg Tablet
1 mg PO DAILY PRN (Reason: anxiety )
Changed
ibuprofen [Advil] 200 mg Tablet
600 mg PO Q6H PRN (Reason: mild pain/HINES) Qty: 0 0RF
Discharge Orders:
Discharge Patient (As Directed); Ordered 04/05/25
Ordered By: Kaity Hill
Discharge Date and Time
Print Language: ARABIC
--- NOTE | 2025-04-05 16:29 | W.PN.UPDATE ---
Update Note
Progress Note Update
Patient was taken to the OR for cholecystectomy and transferred to surgical service even before seeing the patient.
== END 2025-04-05 19:00 | disposition home or self-care (01) | DRG 419 ==
LOC: 2 SOUTH 00:10
PROVIDERS: Emergency Medicine; Internal Medicine; Student in an Organized Health Care Education/Training Program; ADMITTING PHYSICIAN Internal Medicine; ATTENDING PHYSICIAN Surgery; CONSULT PHYSICIAN Internal Medicine Gastroenterology; EMERGENCY PHYSICIAN Emergency Medicine; FAMILY PHYSICIAN Nurse Practitioner; OTHER PHYSICIAN Surgery
PROC: 0FT44ZZ Resection of Gallbladder, Percutaneous Endoscopic Approach (ICD-10-PCS; 2025-04-05)
DX: K80.00 Calculus of gallbladder with acute cholecystitis without obstruction (principal); K82.A1 Gangrene of gallbladder in cholecystitis; Z87.891 Personal history of nicotine dependence; F41.9 Anxiety disorder, unspecified
CPT/HCPCS: 88304; 74181; 74300; 76000; 76700; 80048; 80053; 80076; 82248; 83690; 85025; 85027; 96361; 96365; 96375; 99284; A4300